=== PATIENT | male | born 1950 | race Caucasian/White ===

== ENCOUNTER 2017-10-02 05:34 | Inpatient (IN) | payer OTHER ==
[2017-10-02] MEDS ORDERED: NS 1,000 ML IV ONE ×2 (05:58→07:16)
[2017-10-02] MEDS ORDERED: ONDANSETRON 4 MG/2 ML VIAL IVP ONE (05:58)
--- NOTE | 2017-10-02 05:58 | CPEKG ---
Heart Rate: 88 RR Interval: 682 P-R Interval: 148 QRSD Interval: 90 QT Interval: 384 QTC Interval: 465 P [place]: 64 QRS [place]: -66 T Wave [place]: 30 EKG Severity - ABNORMAL ECG - EKG Impression: SINUS RHYTHM EKG Impression: LEFT ANTERIOR FASCICULAR BLOCK EKG Impression: No acute ischemic changes. Electronically Signed By: Bette Felix 02-Oct-2017 07:11:01
[2017-10-02 06:10] LABS: PLATELET COUNT 172 10^3/uL (150-400)
[2017-10-02] MEDS ORDERED: IOPAMIDOL (ISOVUE-300) 100 ML BTL ONE (06:19)
--- NOTE | 2017-10-02 06:24 | EDPHY ---
H & P Stated Complaint: General Abdo pain, BNO for 2 days. Source: Patient, Family () Exam Limitations: No limitations - Personal History Current Tetanus/Diphtheria Vaccine: Unsure Current Tetanus Diphtheria and Acellular Pertussis (TDAP): Unsure - Medical/Surgical History Hx Asthma: No Hx Chronic Respiratory Disease: No Hx Diabetes: No Hx Cardiac Disease: No Hx Renal Disease: No Hx Cirrhosis: No Hx Alcoholism: No Hx HIV/AIDS: No Hx Splenectomy or Spleen Trauma: No Other PMH: Reun-Y 10 years ago-sees [facility], HTN, L4-S1 Ant/Pos spinal fusion. ORIF Jaw vs fall, selective vagotomy, cataract and vitrectomy surgery, R Shoulder ORIF, Bilateral elbow repair, R meniscus. - Family History Significant Family History: Heart disease - Social History Smoking Status: Former smoker (Quit 20 years ago) Alcohol Use: Occasionally (1 -2 glasses of wine per week) <Bette Felix - Last Filed: 10/02/17 07:09> <Slava Cai - Last Filed: 10/02/17 08:21> Time Seen by Provider: 10/02/17 05:58 HPI/ROS: CC: Abdominal pain HPI: This 67-year-old male with past medical history of prostate cancer with seed implant, Severo-en-Y abdominal surgery, vagotomy and numerous orthopedic surgeries presents to the emergency department today complaining of diffuse abdominal discomfort radiating through to his back and no bowel movement for the last 3 days. The pain came on gradually over 3 hrs and has been increasing to a 9.5/10 at the present time. He had mild nausea last evening and vomited about 1 tbsp of bile followed by dry heaves. He had no relief with Tylenol or Advil. He had some relief sitting in a hot tub of water. His last bowel movement was 3 days ago and normal. He has had decreased appetite but has been trying to maintain his fluids. He has not been lightheaded but has a mild headache which he relates to decreased caffeine. He denies dysuria but his urine has been dark. He denies fever, chills, chest pain, hematuria, melena, hematochezia. No recent illness. Similar episode about 15 years ago due to "inflammation." REVIEW OF SYSTEMS: Constitutional: No fever, no chills. Eyes: No discharge. ENT: No sore throat. Respiratory: No cough, no shortness of breath. Cardiac: No chest pain, no palpitations. Gastrointestinal: SEE HPI. Genitourinary: No hematuria. Musculoskeletal: SEE HPI. Skin: No rashes. Neurological: Mild headache. (Bette Felix) - Medical/Surgical History PMH: PMH: Hypertension for which he takes losartan p.r.n. when his systolic blood pressures over 140 mm of mercury, prostate cancer treated by seed implant. He denies history of coronary artery disease, diabetes, high cholesterol, aneurysm or stroke PSH: Severo-en-Y, vagotomy, ORIF of his jaw, bilateral elbow surgery, anterior and posterior fusion of L4 through S1, sinus surgery, eye surgery. The patient states he still has his gallbladder and his appendix. FH: Father from myocardial infarction at age 47; mother is alive at 94 and has had a stroke and recently was diagnosed with non-Hodgkin's lymphoma. Allergy to erythromycin base Meds: Lorazepam, ranitidine, losartan for blood pressure over 140 systolic, occasional aspirin, Tylenol, Advil (Bette Felix) - Physical Exam Exam: General Appearance: Alert, mod distress. Eyes: Pupils equal and round no pallor or injection. ENT, Mouth: Mucous membranes are slightly dry. Respiratory: There are no retractions, lungs are clear to auscultation. Cardiovascular: Regular rate and rhythm. No murmur, gallops or rubs. Gastrointestinal: Abdomen is distended, diffusely tender to palpation, high- pitched bowel sounds. No rebound, guarding or rigidity. Neurological: Awake and alert, sensory and motor exams grossly normal. Skin: Warm and dry, no rashes. Musculoskeletal: Neck is supple nontender. Extremities are symmetrical, full range of motion. Psychiatric: Patient is oriented X 3, there is no agitation. DIFFERENTIAL DIAGNOSIS: After history and physical exam differential diagnosis was considered for but not limited too: [Abdominal pain, constipation, ileus, obstruction, pancreatitis, neoplasm, aneurysm] (Bette Felix) Constitutional: Initial Vital Signs Temperature (C) 36.8 C 10/02/17 05:49 Heart Rate 92 10/02/17 05:49 Respiratory Rate 16 10/02/17 05:49 Blood Pressure 143/105 H 01/04/18 05:49 O2 Sat (%) 94 10/02/17 05:49 O2 Delivery Mode Nasal Cannula O2 (L/minute) 2 Allergies/Adverse Reactions: erythromycin base Allergy (Intermediate, Verified 10/02/17 05:36) Hives latex Allergy (Mild, Verified 10/02/17 05:36) Other-Enter Comments Home Medications: Medication Instructions Recorded LORazepam 10/02/17 Losartan Potassium 10/02/17 Ranitidine HCl 10/02/17 Tylenol 10/02/17 Medical Decision Making <Bette Felix - Last Filed: 10/02/17 07:09> - Diagnostics Imaging: Discussed imaging studies w/ call center receptionist Radiologist <Slaav Cai - Last Filed: 10/02/17 08:21> - Diagnostics EKG Interpretation: NSR, HR 88, LAFB; no acute ischemic changes (Bette Felix) ED Course/Re-evaluation: The patient was seen and examined, vital signs were reviewed and were significant for mild hypertension. He was given a liter of IV fluids, 2mg of morphine and 4mg of Zofran. His white count was elevated at 18.9 and his lipase is over 14K. His creatinine was normal and therefore a CT of abdomen and pelvis with contrast was ordered and is pending. The patient is signed out to Dr. Slava Cai. (Bette Felix) This patient was signed out to me at 7:00 a.m. with labs and CT results pending by Dr. Felix. On my evaluation at a 7:10 a.m. the patient reports ongoing 8 half 5/10 belly pain upper belly worse than lower belly radiating to his back achy more than sharp in nature. The on exam at this time he has normoactive bowel sounds and moderate upper belly tenderness, mild right mid and lower belly tenderness. His vitals remained stable with mild hypertension. Regarding the reason for his Severo-en-Y procedure in 1977, I he explains that he had duodenal stricture felt at that time to be attributable to Crohn's disease. However, he had thorough workup by Dr. Diego Jaime, his front end mechanic that effectively ruled out Crohn's disease. In retrospect, their impression is that he had a duodenal ulcer that caused the obstruction per the patient's verbal report. A review of labs reveals pancreatitis with the lipase of over 14,000. I counseled the patient regarding pancreatitis the need for admission. A repeat saline bolus is ordered as well as a mg of Dilaudid for analgesia. The patient is agreeable to admission to [facility]. I spoke with Dr. Alvarenga, hospitalist at [facility] who accepts patient for admission to [facility] inpatient bed at 7:[address] results with that discussed with Dr. Cotter who officially read the CT (which I also reviewed), I explained to the patient that he should have a repeat CT abdomen pelvis at a [address] Cotter's recommendation to rule out potential subtle pancreatic head lesion as currently there is significant edema near the pancreatic head the precludes thorough analysis of its structure. Gallbladder ultrasound is pending at this time. Patient had partial relief from Dilaudid IV. At 7:45 a.m the patient's pain is reduced to 2/10 after a 1 mg dose of Dilaudid. He has part way through his 2nd L of saline. A bed is available at 8:20 a.m.. The patient is in ultrasound at this time. He will be transfer to [facility] for his admission after completion of the ultrasound. (Slava Cai) - Data Points Laboratory Results: Laboratory Results 10/02/17 06:00 10/02/17 06:00 10/02/17 10/02/17 10/02/17 07:03 06:00 06:00 WBC 18.87 10^3/uL H 10^3/uL (3.80-9.50) RBC 5.76 10^6/uL 10^6/uL (4.40-6.38) Hgb 18.1 g/dL H g/dL (13.7-17.5) Hct 51.1 % H % (40.0-51.0) MCV 88.7 fL fL (81.5-99.8) MCH 31.4 pg pg (27.9-34.1) MCHC 35.4 g/dL g/dL (32.4-36.7) RDW 12.3 % % (11.5-15.2) Plt Count 172 10^3/uL 10^3/uL (150-400) MPV 10.5 fL fL (8.7-11.7) Neut % (Auto) 83.5 % H % (39.3-74.2) Lymph % (Auto) 3.9 % L % (15.0-45.0) Posey % (Auto) 11.8 % % (4.5-13.0) Eos % (Auto) 0.1 % L % (0.6-7.6) Baso % (Auto) 0.2 % L % (0.3-1.7) Nucleat RBC Rel Count 0.0 % % (0.0-0.2) Absolute Neuts (auto) 15.76 10^3/uL H 10^3/uL (1.70-6.50) Absolute Lymphs (auto) 0.73 10^3/uL L 10^3/uL (1.00-3.00) Absolute Monos (auto) 2.22 10^3/uL H 10^3/uL (0.30-0.80) Absolute Eos (auto) 0.02 10^3/uL L 10^3/uL (0.03-0.40) Absolute Basos (auto) 0.04 10^3/uL 10^3/uL (0.02-0.10) Absolute Nucleated RBC 0.00 10^3/uL 10^3/uL (0-0.01) Immature Gran % 0.5 % % (0.0-1.1) Immature Gran # 0.10 10^3/uL 10^3/uL (0.00-0.10) Sodium 140 mEq/L mEq/L (134-144) Potassium 3.9 mEq/L mEq/L (3.5-5.2) Chloride 100 mEq/L mEq/L (97-110) Carbon Dioxide 22 mEq/l mEq/l (22-31) Anion Gap 18 mEq/L H mEq/L (8-16) BUN 19 mg/dL mg/dL (7-23) Creatinine 0.9 mg/dL mg/dL (0.7-1.3) Estimated GFR > 60 Glucose 105 mg/dL H mg/dL (70-100) Calcium 9.0 mg/dL mg/dL (8.5-10.4) Total Bilirubin 2.1 mg/dL H mg/dL (0.1-1.4) Conjugated Bilirubin 0.7 mg/dL H mg/dL (0.0-0.5) Unconjugated Bilirubin 1.4 mg/dL H mg/dL (0.0-1.1) AST 24 IU/L IU/L (17-59) ALT 37 IU/L IU/L (21-72) Alkaline Phosphatase 62 IU/L IU/L (38-126) Total Protein 6.8 g/dL g/dL (6.3-8.2) Albumin 4.1 g/dL g/dL (3.5-5.0) Lipase 94136 IU/L H IU/L (23-300) Urine Color YELLOW Urine Appearance CLEAR Urine pH 7.0 (5.0-7.5) Ur Specific [place] 1.010 (1.002-1.030) Urine Protein TRACE H (NEGATIVE) Urine Ketones 1+ H (NEGATIVE) Urine Blood NEGATIVE (NEGATIVE) Urine Nitrate NEGATIVE (NEGATIVE) Urine Bilirubin NEGATIVE (NEGATIVE) Urine Urobilinogen 0.2 EU EU (0.2-1.0) Ur Leukocyte Esterase NEGATIVE (NEGATIVE) Urine RBC 0-1 /hpf /hpf (0-3) Urine WBC 0-1 /hpf /hpf (0-3) Ur Epithelial Cells NONE SEEN /lpf /lpf (NONE-1+) Fatty Casts 0-1 /lpf H /lpf (NONE SEEN) Urine Mucus 1+ /lpf /lpf (NONE-1+) Urine Glucose NEGATIVE (NEGATIVE) Medications Given: Discontinued Medications Hydromorphone HCl (Dilaudid) 1 mg IVP EDNOW ONE Stop: 10/02/17 07:10 Last Admin: 10/02/17 07:11 Dose: 1 mg Sodium Chloride (Ns) 1,000 mls @ 0 mls/hr IV EDNOW ONE; Wide Open PRN Reason: Protocol Stop: 10/02/17 05:59 Last Admin: 10/02/17 06:04 Dose: 1,000 mls Sodium Chloride (Ns) 1,000 mls @ 0 mls/hr IV EDNOW ONE; Wide Open PRN Reason: Protocol Stop: 10/02/17 07:17 Last Admin: 10/02/17 07:18 Dose: 1,000 mls Morphine Sulfate (Morphine) 2 mg IVP EDNOW ONE Stop: 10/02/17 06:34 Last Admin: 10/02/17 06:47 Dose: 2 mg Ondansetron HCl (Zofran) 4 mg IVP EDNOW ONE Stop: 10/02/17 05:59 Last Admin: 10/02/17 06:04 Dose: 4 mg Departure <Bette Felix - Last Filed: 10/02/17 07:09> <Slava Cai - Last Filed: 10/02/17 08:21> - Departure Disposition: [facility] Acute Clinical Impression: Simple cyst of kidney Acute pancreatitis Qualifiers: Pancreatitis type: unspecified pancreatitis type Acute pancreatitis complication: unspecified Qualified Code(s): K85.90 - Acute pancreatitis without necrosis or infection, unspecified Condition: Fair
[2017-10-02] MEDS ORDERED: HYDROmorphONE/DILAUDID 1 MG/ML INJ IVP ONE (07:09)
[2017-10-02] MEDS ORDERED: ACETAMINOPHEN 325 MG TAB PO PRN (10:17)
[2017-10-02] MEDS ORDERED: ONDANSETRON 4 MG/2 ML VIAL IVP PRN (10:17)
[2017-10-02] MEDS ORDERED: ONDANSETRON DISINTEGRATING 4 MG TAB PO PRN (10:17)
[2017-10-02] MEDS: HYDROmorphONE/DILAUDID 1 MG/ML INJ IVP PRN ×5 (11:14→20:41)
[2017-10-02] MEDS: D5W NS 1,000 ML IV SCH (11:16)
[2017-10-02] MEDS ORDERED: SODIUM CL NASAL 45 ML BTL NS PRN (13:12)
[2017-10-02] MEDS ORDERED: LORazepam 2 MG/ML INJ IVP PRN (13:13)
--- NOTE | 2017-10-02 14:18 | GHP ---
[f rep st] HISTORY AND PHYSICAL DATE OF ADMISSION: 10/02/2017 CHIEF COMPLAINT: Pancreatitis. HISTORY OF PRESENT ILLNESS: A 67-year-old male, with a history of hypertension and GERD, who developed abdominal pain and bloating beginning on Friday. The pain was sharp and radiated to his back. Pain was aggravated by any kind of movement and relieved by lying in hot water. Denied any nausea, vomiting, or diarrhea initially, but did have a small amount of emesis and dry heaving yesterday. He has had no BM since Friday as he has minimal appetite and taken in little to eat or drink. Denies any fevers, chills, or sweats. No new medications. Drinks a 6-pack of beers in 3 weeks. Did have a glass of wine on the evening before the pain started. REVIEW OF SYSTEMS: I completed a 10-point review of systems, negative except as noted in HPI. PAST MEDICAL HISTORY: GERD, hypertension, duodenal stenosis, prostate cancer status post radiation beads. PAST SURGICAL HISTORY: Bilateral elbow, right shoulder, right knee meniscus repair and lateral release, nasal reconstruction surgery, a Severo-en-Y. SOCIAL HISTORY: Lives in the area with his . Drinks a 6-pack of beer maybe every 3 weeks. Did have a glass of wine on 09/28/2017. No tobacco or drugs. FAMILY HISTORY: No gallstones. Paternal aunt with breast cancer. ALLERGIES: Latex, erythromycin. HOME MEDICATIONS: Testosterone, nasal spray, multivitamin, losartan 25 mg daily , Ativan 1-2 q.h.s. p.r.n., Advil, ranitidine 75 mg b.i.d., Tylenol. PHYSICAL EXAMINATION: VITAL SIGNS: Temperature 37, blood pressure 153/97, heart rate 80s, respiration 18, 90% on room air. GENERAL: Well-appearing male sitting up in bed, no acute distress. HEENT: PERRLA. Mildly dry mucous membranes. CARDIOVASCULAR: Regular rate and rhythm. No murmurs, gallops, rubs. LUNGS: Clear to auscultation bilaterally. ABDOMEN: Soft and mildly distended. Tenderness midepigastrium bilaterally in lower quadrants. No rebound or guarding. Quiet bowel sounds. : No Wong. MUSCULOSKELETAL: 5/ 5 upper and lower extremity strength. NEURO: 2 through 12 intact. PSYCH: Alert and oriented x3. LABORATORY DATA: 1. WBCs 18, hemoglobin 18, hematocrit 51, platelets 172. Sodium 140, potassium 3.9, chloride 108, anion gap 18, creatinine 0.9. Total bilirubin is 2.1, conjugated 0.7, unconjugated 1.4. AST, ALT normal. Total protein 6.1, albumin 4.1, lipase is 14,000. 2. Abdominal ultrasound: Negative for gallstones. Echogenic head of pancreas , compatible with inflammation. 3. Abdominal CT: Status post Severo-en-Y procedure with inflammation involving duodenal limb and at the level of pancreatic head, consistent with acute pancreatitis, with inflammation extending to the right anterior space. Recommend followup imaging in 3 weeks. No bile duct dilatation, although there is gallbladder hydrops. Right-sided colonic constipation with nondistended distal colon diverticula without diverticulitis. No obstruction or free air. Bilateral renal cortical simple cysts. ASSESSMENT AND PLAN: 1. Acute pancreatitis: Unclear etiology at this time. He did have alcohol the night before but does not endorse drinking much. He is on losartan. There have been studies showing a link between lisinopril and pancreatitis, but not as much evidence on losartan. Ultrasound was negative for gallstones. Could consider a magnetic resonance cholangiopancreatography if symptoms not improving. Will supportively care with nothing by mouth, intravenous fluids, as -needed intravenous Dilaudid and intravenous antiemetics. 2. Leukocytosis: Suspect a stress inflammation, given acute pancreatitis. He is afebrile and denies any other infectious symptoms. We will hydrate and repeat in the morning. 3. Gastroesophageal reflux disease. Continue ranitidine. 4. Hypertension. We will hold losartan for now. 5. History of prostate cancer status post radiation beads. 6. History of duodenal stenosis. He is followed by Dr. Jaime. 7. Mild hyperbilirubinemia. This is secondary to acute pancreatitis. There was no evidence of obstruction or stones on ultrasound. Again, we will repeat in the morning. 8. Diet: Nothing by mouth. Intravenous fluids. 9. Deep venous thrombosis prophylaxis: Lovenox. DISPOSITION: Patient warrants inpatient admission, given acute pancreatitis warranting IV fluids, IV opioids. /[id number]/MODL MTDD
[2017-10-02] MEDS: FAMOTIDINE 20 MG/NACL 50 ML IV SCH ×2 (14:31→20:41)
--- NOTE | 2017-10-02 14:49 | ASMTCMCOM ---
CM Note CM Note Notes: Patient admitted for abdominal pain, diagnosed with acute pancreatitis of unknown etiology. Treatment is supportive at this time. Patient lives independently with and is employed. He will likely not have any discharge needs, but CM available if any arise. Date Signed: 10/02/2017 02:49 PM Electronically Signed By:Faby Ocasio RN
--- NOTE | 2017-10-02 15:10 | PDMN ---
Medical Necessity Medical necessity: Pt meets INPT criteria per MD and [facility] M-250 Pancreatitis ( with abd pain, lipase 14,000, leukocytosis; requiring NPO status, IV fluids, IV opioids per H&P).
[2017-10-03] MEDS: D5W NS 1,000 ML IV SCH ×2 (00:30→19:57)
[2017-10-03] MEDS: HYDROmorphONE/DILAUDID 1 MG/ML INJ IVP PRN ×5 (01:54→21:59)
[2017-10-03] MEDS: FAMOTIDINE 20 MG/NACL 50 ML IV SCH ×2 (07:32→19:58)
[2017-10-03] MEDS: ENOXAPARIN 40 MG/0.4 ML SYR SC SCH (07:34)
--- NOTE | 2017-10-03 09:30 | HOSPPROG ---
Hospitalist Progress Note Assessment/Plan: #Acute pancreatitis -denies excessive Etoh -no e/o stones on CT or U/S. Given persistent pain and leukocytosis, will check HIDA to r/o cholecystitis -check lipid panel #Leukocytosis: still elevated despite hydration. Afebrile. Will hold off abx for now. #GERD: famotidine #HTN: BP stable, restart home meds when taking PO #Diet: NPO, IVFs #Disp: cont inpatient admission for ongoing pain, requires IV opioids and fluids Subjective: pain 9/10 this morning. More bloated. N/V last night Objective: Vital Signs Temp Pulse Resp BP Pulse Ox 37.6 C 85 18 133/77 H 92 10/03/17 07:43 10/03/17 07:43 10/03/17 07:43 10/03/17 07:43 10/03/17 07:43 Laboratory Results 10/03/17 04:15 10/03/17 04:15 10/02/17 10/03/17 10/04/17 05:59 05:59 05:59 Intake Total 2000 Balance 1999 - Physical Exam Constitutional: no apparent distress Eyes: PERRL Ears, Nose, Mouth, Throat: moist mucous membranes, hearing normal Cardiovascular: regular rate and rhythym, no murmur, rub, or gallop Respiratory: no respiratory distress, no rales or rhonchi Gastrointestinal: distension (a bit more distension today, mild TTP throughout) , No guarding, No rebound Genitourinary: No coughlin in urethra Skin: warm Musculoskeletal: full muscle strength Neurologic: AAOx3, CN II-XII Intact ICD10 Worksheet Patient Problems: Problems Problem Status Onset Acute pancreatitis Acute Simple cyst of kidney Acute
[2017-10-03] MEDS ORDERED: KETOROLAC 30 MG/1 ML SDV IVP PRN (09:52)
[2017-10-03] MEDS ORDERED: SINCALIDE 5 MCG VIAL IJ ONE (13:17)
[2017-10-04] MEDS: HYDROmorphONE/DILAUDID 1 MG/ML INJ IVP PRN ×3 (01:03→08:46)
[2017-10-04] MEDS: FAMOTIDINE 20 MG/NACL 50 ML IV SCH (08:48)
[2017-10-04] MEDS: ENOXAPARIN 40 MG/0.4 ML SYR SC SCH (08:50)
--- NOTE | 2017-10-04 09:19 | HOSPPROG ---
Hospitalist Progress Note Assessment/Plan: #Acute pancreatitis -pain improved. -denies excessive Etoh -no e/o stones on CT or U/S. Given persistent pain and leukocytosis, HIDA normal -normal TGs -change to regular diet clears oral pain meds #Leukocytosis: nearly resolved. Likely stress reaction. HIDA normal. Afebrile. Will hold off abx for now. #GERD: famotidine #HTN: BP stable, restart home meds when taking PO #Diet: clears #Disp: cont inpatient admission for ongoing pain control. If improved, may DC tomorrow Subjective: passing gas. No N/V Objective: Vital Signs Temp Pulse Resp BP Pulse Ox 37.0 C 79 16 155/90 H 94 10/04/17 07:57 10/04/17 07:57 10/04/17 07:57 10/04/17 07:57 10/04/17 07:57 Laboratory Results 10/04/17 04:46 10/04/17 04:46 10/03/17 10/04/17 10/05/17 05:59 05:59 05:59 Intake Total 1999 0 Balance 1999 0 - Physical Exam Constitutional: no apparent distress Eyes: PERRL Ears, Nose, Mouth, Throat: moist mucous membranes Cardiovascular: regular rate and rhythym Respiratory: no respiratory distress, no rales or rhonchi Gastrointestinal: normoactive bowel sounds, tenderness (mild epigastic TTP, no rebound), distension Skin: warm Musculoskeletal: full muscle strength Psychiatric: flat affect ICD10 Worksheet Patient Problems: Problems Problem Status Onset Acute pancreatitis Acute Simple cyst of kidney Acute
--- NOTE | 2017-10-04 11:32 | ASMTCMCOM ---
CM Note CM Note Notes: SWer met w/ RN today regarding Pt. Plan is still for Pt. to go home independently as of today. Date Signed: 10/04/2017 11:32 AM Electronically Signed By:Deya Heart LCSW
[2017-10-04] MEDS: oxyCODONE IR 5 MG TAB PO PRN ×3 (11:44→22:57)
[2017-10-04] MEDS ORDERED: HYDROmorphONE/DILAUDID 1 MG/ML INJ IVP PRN (15:57)
[2017-10-04 19:19] VITALS: RESP 16
[2017-10-04] MEDS: FAMOTIDINE 20 MG TAB PO SCH (20:56)
[2017-10-05 07:24] VITALS: BP 140/88; PULSE 68; TEMP 99.5; O2SAT 92
[2017-10-05] MEDS: ENOXAPARIN 40 MG/0.4 ML SYR SC SCH (08:52)
[2017-10-05] MEDS: FAMOTIDINE 20 MG TAB PO SCH (08:52)
[2017-10-05] MEDS: oxyCODONE IR 5 MG TAB PO PRN (08:55)
--- NOTE | 2017-10-05 13:32 | GDS ---
[f rep st] DISCHARGE SUMMARY DISCHARGE DIAGNOSES: 1. Acute pancreatitis. 2. Leukocytosis. 3. Gastroesophageal reflux disease. 4. Hypertension. HISTORY OF PRESENT ILLNESS: A 67-year-old male, history of hypertension and GERD, who developed abdo wilfredo pain and bloating starting on Friday. The pain was sharp and radiated to his back. It was agg ravated by any kind of movement, relieved by lying in hot water. He denies any nausea, vomiting, or diarrhea. He has had no BM since Friday, has had minimal appetite. He denied any fevers, chills, or sweats. No new medications. Reports drinking a 6 pack of beers in 3 weeks. Did have a glass of wi ne the evening before his pain started. HOSPITAL COURSE BY PROBLEM: 1. Acute pancreatitis, unclear etiology. He did have alcohol the night before, but does not endorse a significant amount. Ultrasound was negative for gallstones. He had persistent leukocytosis and p ain, ultrasound was negative for gallstones. There was no evidence of duct dilatation. Given that s ymptoms improved did not undergo further imaging. At the time of discharge patient was tolerating p. o. without issue and did not require any opioid medications. If recurrent event, he may need followu p with GI as an outpatient. 2. Leukocytosis: Suspect this is secondary to stress inflammation given acute pancreatitis. He rem ained afebrile but did have persistent symptoms. Check a HIDA scan that was negative for cholecystit is. This is resolved. 3. GERD: Ranitidine. 4. Hypertension: Resume losartan. 5. History of prostate cancer: Status post radiation beads. 6. History of duodenal stenosis: He can follow up with his primary wood patternmaker, Dr. Josue. 7. Disposition: Patient is stable for discharge home. Diet advance diet slowly. Avoid fatty and s picy foods. PHYSICAL EXAM: VITAL SIGNS: Today, temperature 37.5, blood pressure 140/88, heart rate 60, respirat ions 16, 92% on room air. GENERAL: Well-appearing, sitting up in bed, no acute distress. HEENT: PE RRLA. EOMI. Oropharynx clear. CV: Regular rate and rhythm. No murmurs, gallops, rubs. LUNGS: C lear. ABDOMEN: Mildly distended but soft, nontender. Positive bowel sounds. : No Wong. MUSCU LOSKELETAL: 5/5 upper and lower extremity strength. NEURO: 2-12 intact. PSYCH: Alert and oriente d x3. /[id number]/MODL
--- NOTE | 2017-10-05 16:35 | ASDISCHSUM ---
Discharge Information Plan Status:Home with No Needs Medically Cleared to Leave: Discharge Date:10/05/2017 10:51 AM CM D/C Disposition:Home, Routine, Self-Care ADT D/C Disposition:Home, Routine, Self-Care Projected Discharge Date:10/05/2017 10:51 AM Transportation at D/C: Discharge Delay Reason: Follow-Up Date:10/05/2017 10:51 AM Discharge Slot: Final Diagnosis: Placement Information Patient Contact Information Contact Name:BABAKDAMARIGudeliaJose Luis Relationship: Address: Home Phone: Work Phone: City: Alternate Phone: State/Bex Code: Email: Financial Information Financial Class:[employer] Primary Plan Desc[facility] Primary Plan Number:[id number] Secondary Plan Desc: Secondary Plan Number: Assessment Information [facility] CM Progress Note CM Note CM Note Notes: Patient admitted for abdominal pain, diagnosed with acute pancreatitis of unknown etiology. Treatment is supportive at this time. Patient lives independently with and is employed. He will likely not have any discharge needs, but CM available if any arise. Date Signed: 10/02/2017 02:49 PM Electronically Signed By:Faby Ocasio RN [facility] CM Progress Note CM Note CM Note Notes: [place] met w/ RN today regarding Pt. Plan is still for Pt. to go home independently as of today. Date Signed: 10/04/2017 11:32 AM Electronically Signed By:Deya Heart LCSW Intervention Information
[2017-10-09] MEDS ORDERED: TESTOSTERONE IM 100 MG/ML SYRINGE IM SCH (14:00)
== END 2017-10-05 10:51 | disposition home or self-care (01) | DRG 440 ==
LOC: CED 05:34 → MERGE 07:33 → CEDHOLD 07:33 → F3E 09:07
PROVIDERS: ADMIT Family Medicine; ATTEND Internal Medicine
DX: K85.90 Acute pancreatitis without necrosis or infection, unspecified (principal); K21.9 Gastro-esophageal reflux disease without esophagitis; I10 Essential (primary) hypertension; Z85.46 Personal history of malignant neoplasm of prostate; Z98.1 Arthrodesis status; Z98.0 Intestinal bypass and anastomosis status
CPT/HCPCS: 74177-PO; 76705-PO; 80048-PO; 80076-PO; 81003-PO; 81015-PO; 83690-PO; 85025-PO; 96374; A9537; J1170; J1650; J1885; J2405; Q9967

== ENCOUNTER → 2017-11-28 | Outpatient (CLI) | payer OTHER ==
[~2017-11-28] MED LIST: GADOBUTROL 10 ML VIAL IVP ONE
== END ==
LOC: FIMAGING 06:38
PROVIDERS: ATTEND Internal Medicine Gastroenterology
DX: K86.9 Disease of pancreas, unspecified (principal); Q45.3 Other congenital malformations of pancreas and pancreatic duct; N28.1 Cyst of kidney, acquired; R16.1 Splenomegaly, not elsewhere classified
CPT/HCPCS: A9585

== ENCOUNTER → 2018-06-17 | Outpatient (CLI) | payer OTHER | LOC: FIMAGING 06:49 | PROVIDERS: ATTEND Internal Medicine Gastroenterology | DX: K85.80 Other acute pancreatitis without necrosis or infection (principal); K86.89 Other specified diseases of pancreas; Q45.3 Other congenital malformations of pancreas and pancreatic duct | CPT/HCPCS: 82565-PO; A9585 ==